=== PATIENT | male | born 1985 | race Caucasian/White ===

== ENCOUNTER → 2019-08-05 | Outpatient (CLI) | payer OTHER ==
[~2019-08-05] MED LIST: CETI10CA PO; FEXO180T81 PO; LEVO125T5 PO; OMEG100021 PO; OXYC1TAB15 PO
== END ==
LOC: LAB 14:39
PROVIDERS: ATTEND Surgery
DX: Z01.818 Encounter for other preprocedural examination (principal); Z11.59 Encounter for screening for other viral diseases; L05.01 Pilonidal cyst with abscess
CPT/HCPCS: C9803; U0003; 36415

== ENCOUNTER 2019-08-09 12:17 | Day surgery (SDC) | payer OTHER ==
[~2019-08-09] VITALS: Ht 177.8 cm; Wt 103.0 kg
[~2019-08-09 12:17] MED LIST changes: +HYDROmorphone 2 MG/ML VIAL IV PRN; +IV RINGERS,LACTATED 1000ML 1,000 ML IV SCH; +MORPHINE SULFATE 2 MG/ML VIAL. IV PRN; +ONDANSETRON PF 4 MG/2 ML VIAL. IV PRN; -OXYC1TAB15 PO; +PROCHLORPERAZINE 10 MG/2 ML VIAL. IV PRN; +fentaNYL PF VIAL 100 MCG/2 ML VIAL IV PRN
[2019-08-09] MEDS ORDERED: BUPIVACAINE-EPI 0.25%-1:200000 MPF 30 ML VIAL. ONE (12:54)
[2019-08-09] MEDS ORDERED: PROPOFOL 10 MG/ML (20ML) VIAL. IV ONE (13:05)
[2019-08-09] MEDS ORDERED: fentaNYL PF VIAL 100 MCG/2 ML VIAL ONE (13:05)
[2019-08-09] MEDS ORDERED: DEXAMETHASONE SOD PHOS 4 MG/ML VIAL ONE (13:05)
[2019-08-09] MEDS ORDERED: MIDAZOLAM HCL/PF 2 MG/2 ML VIAL. ONE (13:05)
[2019-08-09] MEDS ORDERED: LIDOCAINE 2% PF 5 ML VIAL. ONE (13:05)
[2019-08-09] MEDS ORDERED: ONDANSETRON PF 4 MG/2 ML VIAL. ONE (13:05)
[2019-08-09] MEDS ORDERED: ROCURONIUM 50 MG/5 ML VIAL. ONE (13:09)
[2019-08-09] MEDS ORDERED: KETOROLAC 30 MG/ML VIAL. ONE ×2 (13:41→13:42)
[2019-08-09] MEDS ORDERED: GLYCOPYRROLATE 1 MG/5 ML VIAL. ONE (13:41)
[2019-08-09] MEDS ORDERED: NEOSTIGMINE METHYLSULFATE 5 MG/5 ML SYRINGE. ONE (13:42)
[2019-08-09] MEDS ORDERED: SEVOFLURANE 31 TO 60 MINUTES. IH ONE (13:50)
--- NOTE | 2019-08-09 14:07 | PDOC4 ---
Operative Note Operative Note Date: 08/09/2019 at 1405 Preoperative diagnosis: Pilonidal cyst Postoperative diagnosis: Same Procedure: Pilonidal cystectomy Surgeon: Bryce Specimen: Pilonidal cyst Dictation: Patient is a 34-year-old male whose had drainage from a open wound on his buttocks for several years. Procedure of pilonidal cystectomy was explained to the patient detail was benefits were also discussed occluding bleeding infection alternatives to this procedure also discussed with patient who seemed to understand and gave both verbal and written consent to have procedure performed. Patient was taken to the operating room placed in the supine position general anesthesia was initiated once patient was sleeping intubated he was then repositioned in the prone positioning where his buttocks was prepped and draped usual sterile fashion using Betadine scrub and solution. An area around the pilonidal cyst was injected with quarter percent Marcaine with epinephrine an elliptical incision was made with 15 blade scalpel is carried down through the subcutaneous tissue using electrocautery right hemostasis until the cyst and total and surrounding tissue were removed. The wound was then closed in 2 layers the deep layer running 0 Vicryl and the skin was reapproximated with 3 oh horizontal mattress sutures of nylon. Wound was dressed 4 x 4's and Medipore tape patient was then repositioned in the supine position extubated and taken to recovery in stable condition all sponge instrument needle counts listed as correct estimated blood loss 10 mL JACK HOPKINS MD Aug 09, 2019 14:07
--- NOTE | 2019-08-09 14:10 | DISCH ---
DISCHARGE INSTRUCTIONS Condition on Discharge Condition on Discharge: Stable Activity After Discharge Activity Instructions for Disc: Avoid exertion Diet after Discharge Diet after Discharge: Regular Wound Incision Care Other wound/incision instructi: May shower in 24 hours Contacting the after DC Call your doctor for: If your condition worsens Follow-Up Follow up with: Dr. Hopkins in 2 weeks JACK HOPKINS MD Aug 09, 2019 14:10
[2019-08-09] MEDS ORDERED: OXYC1TAB15 PO (14:14)
[2019-08-09] MEDS ORDERED: oxyCODONE/APAP 5/325 1 TAB TABLET PO ONE (14:30)
[2019-08-09 14:35] VITALS: BP 154/85
--- NOTE | 2019-08-12 17:06 | PATHOLOGY ---
[facility] Accession Number: [id number] . 01 Material submitted: . buttock - PILONIDAL CYST . 01 Clinical history: . Pilonidal cyst . 02 Diagnosis: Skin and subcutaneous tissue, pilonidal cystectomy: - Pilonidal abscess/sinus. (JPM:[facility] 08/12/2019) [facility] 08/12/2019 0941 Local . 02 Electronically signed: . Dylon Bowden MD, Pathologist NPI- [id number] . 01 Gross description: . The specimen is received in formalin, labeled "Varun Kirby, pilonidal cyst". Received is an ellipse of skin with attached underlying fibroadipose tissue measuring 5.3 x 2.8 x 2.3 cm in greatest dimensions. The epidermal surface displays a well-circumscribed, raised and white-fowler to light peña lesion measuring 0.9 x 0.9 x 0.3 cm. Sectioning reveals a linear sinus tract measuring 3.2 cm, which extends from the aforementioned lesion into the underlying soft tissue. The specimen is submitted representatively in cassette A1. ([facility]; 08/10/2019) QA/QA 08/10/2019 1137 Local . 02 Pathologist provided ICD-10: L05.01 . 02 CPT . 199572 Specimen Comment: A courtesy copy of this report has been sent to [phone] Specimen Comment: Report sent to Performed at: 01 [facility] [address] [id number] MD Cleveland Price MD Phone: [phone] Performed at: 02 [facility] [address] [place], [place] [id number] MD Dylon Bowden MD Phone: [phone]
== END 2019-08-09 15:40 | disposition home or self-care (01) ==
LOC: SURG 12:17
PROVIDERS: ATTEND Surgery
DX: L05.01 Pilonidal cyst with abscess (principal); E89.0 Postprocedural hypothyroidism; E66.9 Obesity, unspecified; Z68.32 Body mass index [BMI] 32.0-32.9, adult
CPT/HCPCS: 11771; 88304; A7015; J1100; J1885; J2250; J2405; J2704; J2710; J3010; J3490; A4461